=== PATIENT | male | born 1975 | race Caucasian/White ===

== ENCOUNTER 2022-11-25 15:56 | Emergency (ER) | payer OTHER ==
[2022-11-25 16:05] VITALS: BP 135/84; PULSE 93; RESP 16; TEMP 97.7; BMI 27.4
[2022-11-25] MEDS ORDERED: LIDOCAINE 5% TOPICAL PATCH TP ONE (16:35)
[2022-11-25] MEDS ORDERED: KETOROLAC TROMETHAMINE 30 MG/1 ML VIAL IM ONE (16:35)
[2022-11-25] MEDS ORDERED: ACETAMINOPHEN 500 MG TABLET (FP) PO ONE (16:35)
[2022-11-25] MEDS ORDERED: LIDOCAINE 5% TOPICAL PATCH ONE (17:06)
[2022-11-25] MEDS ORDERED: KETOROLAC TROMETHAMINE 30 MG/1 ML VIAL ONE (17:07)
[2022-11-25] MEDS ORDERED: ACETAMINOPHEN 500 MG TABLET (FP) ONE (17:07)
[2022-11-25] MEDS ORDERED: LIDOCAINE PATCH REMOVAL MC SCH (22:00)
== END 2022-11-25 18:11 | disposition home or self-care (01) ==
LOC: JERFT 15:56
PROC: 3E0233Z Introduction of Anti-inflammatory into Muscle, Percutaneous Approach (ICD-10-PCS; principal; 2022-11-25)
DX: M54.50 Low back pain, unspecified (principal); V89.2XXA Person injured in unspecified motor-vehicle accident, traffic, initial encounter; Y93.I9 Activity, other involving external motion
CPT/HCPCS: 99284-25